=== PATIENT | female | born 1970 | race American Indian/Alaskan Native ===

== ENCOUNTER 2021-04-04 11:45 | Day surgery (SDC) | payer SELFPAY ==
[~2021-04-04 11:45] MED LIST: BENZOCAINE 20% TOP SPRAY 0.5 ML UNIT DOSE MM NR; LIDOCAINE (2%) 20 MG/1 ML VIAL 20 ML MDV INFILTRATI NR; LIDOCAINE VISCOUS 2% 15 ML ORAL LIQD MM NR; SODIUM CHLORIDE 0.9% 1000 ML 1,000 ML IV SCH
[2021-04-04] MEDS ORDERED: EPINEPHrine/PF 1 MG/1 ML INJ ONE (12:09)
--- NOTE | 2021-04-04 12:37 | Anesthesia Consultation ---
Anesthesia Consult and Med Hx Date of service: 04/04/21 - Airway Anesthetic Teeth Evaluation: Good ROM Head & Neck: Adequate Mental/Hyoid Distance: Adequate Mallampati Class: Class II Intubation Access Assessment: Probably Good - Pulmonary Exam CTA: Yes - Cardiac Exam Cardiac Exam: RRR - Pre-Operative Health Status ASA Pre-Surgery Classification: ASA2 Proposed Anesthetic Plan: MAC - Pulmonary Hx Smoking: No Hx Asthma: No Hx Respiratory Symptoms: No - Cardiovascular System Hx Hypertension: Yes - Central Nervous System Hx Psychiatric Problems: No - Endocrine Hx Non-Insulin Dependent Diabetes: No - Other Systems Hx Alcohol Use: No Hx Substance Use: No
--- NOTE | 2021-04-04 12:39 | Anesthesia Day of Surgery ---
Anesthesia Day of Surgery - Day of Surgery Patient Examined: Yes Patient H&P Reviewed: Yes Patient is NPO: Yes
[2021-04-04] MEDS ORDERED: MIDAZOLAM 2 MG/2 ML INJ ONE (12:41)
[2021-04-04] MEDS ORDERED: KETAMINE/STERILE WATER 50 MG/ML SYRINGE ONE (12:42)
[2021-04-04] MEDS ORDERED: propofoL 200 MG/20 ML VIAL IV ONE (12:42)
[2021-04-04] MEDS ORDERED: LIDOCAINE MPF (2%) 20 MG/1 ML VIAL 5 ML ONE (12:43)
[2021-04-04] MEDS ORDERED: ACETYLCYSTEINE 20% 200 MG/1 ML *FOR INHALATION USE INHALATION NR (13:06)
--- NOTE | 2021-04-04 14:01 | Procedure Note ---
Date of procedure: 04/04/21 Pre-op diagnosis: Right lower lobe infitrate with bronchiectasis Post-op diagnosis: same Procedure: Fiberoptic bronchoscopy. The indications, risks, benefits, alternatives to fiberoptic bronchoscopy were discussed. The patient verbalized understanding, informed consent was obtained and has been filed as part of the medical records. See anesthesia notes for MAC Lidocaine jelly was placed in the right nare. The fiberoptic bronchoscope was placed through the right nare. There was extensive upper airway edema and inflammation. The epiglottis was visualized, and the bronchosocpe passed through the vocal chords. The left lung was normal, the DEMI, lingula and LLL were visualized. The right upper lobe was normal, the bronchus intermedius were normal. The right lower lobe, was destroyed- architecture, with thick mucus. The bronchial washings were obtained and cytology brushings. Therapeutic suctioning with saline washes and mucomyst. Pictures were taken. Patient tolerated the procedure well with episodes of coughing. Bronchial samples sent for AFB, respiratory culture, fungal smear and cultures. Post procedure CXR ordered Anesthesia: MISHA Surgeon: JERRY JERNIGAN Estimated blood loss: none Specimen disposition: to lab Condition: stable Disposition: other (Home once discharge criteria met.)
--- NOTE | 2021-04-04 15:01 | XRay Report ---
CHEST 1 VIEW 04/04/2021 2:42 PM INDICATION / CLINICAL INFORMATION: bronchiectasis with RLL infiltrate, post bronch. COMPARISON: CT dated 12/09/15 FINDINGS: SUPPORT DEVICES: None. HEART / MEDIASTINUM: No significant abnormality. LUNGS / PLEURA: Increased right basilar airspace disease in area of previously noted right lower lobe bronchiectasis. Left lung is clear. No pneumothorax. ADDITIONAL FINDINGS: No significant additional findings. IMPRESSION: 1. Right basilar airspace disease which may represent pneumonia. Signer Name: Sunny Live MD Signed: 04/04/2021 2:57 PM Workstation Name: [id number]
--- NOTE | 2021-04-04 16:11 | Post Anesthesia Evaluation ---
- Post Anesthesia Evaluation Patient Participated: Yes Airway Patent: Yes Stable Respiratory Function: Yes Nausea/Vomiting: No Temp > 96.8F: Yes Pain Manageable: Yes Adequeate Hydration: Yes Anesthesia Complications: No
[2021-04-04 16:21] VITALS: BP 91/61
== END 2021-04-04 16:43 | disposition home or self-care (01) ==
LOC: GIO 11:45
PROVIDERS: ATTEND Internal Medicine
DX: J47.9 Bronchiectasis, uncomplicated (principal); R05 Cough; I10 Essential (primary) hypertension; Z87.891 Personal history of nicotine dependence; Z79.899 Other long term (current) drug therapy; Z98.890 Other specified postprocedural states; Z88.0 Allergy status to penicillin
CPT/HCPCS: 31623; 71045; 88104; 88112; 88305; J0171; J2250; J2704; J3490; J7030; 87116